=== PATIENT | female | born 1980 | race African-American/Black ===

== ENCOUNTER 2017-12-28 13:50 | Emergency (ER) | payer OTHER ==
--- NOTE | 2017-12-28 14:57 | ULT ---
DOPPLER VENOUS ULTRASOUND LEFT LOWER EXTREMITY: Date: 12/28/17 INDICATION: Left leg edema and pain. TECHNIQUE: Ocyne scale, color Doppler, and vascular duplex with spectral analysis was performed of the deep venou s structures of the left lower extremity. The common femoral vein, superficial femoral vein, proximal greater saphenous vein, proximal greater profunda vein, popliteal, and posterior tibial veins were a ssessed. FINDINGS: Normal compression, flow, and augmentation was seen within the deep venous structures on the left low er extremity. IMPRESSION: No evidence of deep venous thrombosis within the left lower extremity. POS: KATHARINA
== END 2017-12-28 15:23 | disposition home or self-care (01) ==
LOC: ERS 13:50
DX: M79.605 Pain in left leg (principal); B20 Human immunodeficiency virus [HIV] disease; Z86.73 Personal history of transient ischemic attack (TIA), and cerebral infarction without residual deficits; F31.9 Bipolar disorder, unspecified; F17.210 Nicotine dependence, cigarettes, uncomplicated; Z79.899 Other long term (current) drug therapy

== ENCOUNTER 2018-04-29 16:32 | Emergency (ER) | payer SELFPAY ==
[2018-04-29] MEDS ORDERED: hydrOXYzine 25 MG TAB ONE (17:15)
== END 2018-04-29 17:27 | disposition home or self-care (01) ==
LOC: ERS 16:32
DX: L30.9 Dermatitis, unspecified (principal); Z86.73 Personal history of transient ischemic attack (TIA), and cerebral infarction without residual deficits; F41.9 Anxiety disorder, unspecified; F31.9 Bipolar disorder, unspecified; F17.210 Nicotine dependence, cigarettes, uncomplicated; B20 Human immunodeficiency virus [HIV] disease
CPT/HCPCS: 99282

== ENCOUNTER 2018-06-29 14:07 | Inpatient (IN) | payer SELFPAY ==
[2018-06-29 15:44] LABS: Hemoglobin 10.7 g/dL (12.0-16.0); Mean Corpuscular HGB CONC 31.9 g/dL (32.0-36.0); Mean Corpuscular Hemoglobin 32.3 pg (27.0-31.0); Mean Platelet Volume 9.2 fL (7.4-10.4); Platelet Count 132 thou/uL (130-400); RBC Distribution Width 13.8 % (11.5-14.5); Red Blood Cell (RBC) Count 3.32 mill/uL (4.20-5.40); White Blood Cell (WBC) Count 2.6 thou/uL (4.8-10.8)
[2018-06-29 16:04] LABS: Band 10 % (5-11); Eosinophils 2 % (0-10); Lymphocytes 35 % (21-51); MDiff Complete? YES; Macrocytosis SLIGHT = 6-15 cells (100X) (0-5/hpf); Monocytes 7 % (0-10); Neutrophil 44 % (42-75); Platelet Morphology Comment Appears Adequate; Polychromasia SLIGHT = 2-3 cells (100X) (0-2/hpf); Reactive Lymphocytes 2 % (0-10)
[2018-06-29 16:08] LABS: ALT (SGPT) 13 U/L (8-55); AST (SGOT) 33 U/L (5-34); Albumin 3.5 g/dL (3.5-5.0); Alkaline Phosphatase 84 U/L (40-150); Anion Gap 11 mmol/L (10-20); BUN (Urea Nitrogen) 7 mg/dL (7.0-18.7); Bilirubin, Total 0.3 mg/dL (0.2-1.2); Calc. Creatinine Clearance 0 mL/min (70-130); Calcium 8.5 mg/dL (7.8-10.44); Carbon Dioxide 24 mmol/L (22-29); Chloride 105 mmol/L (98-107); Estimated GFR-MDRD Greater than 90; Globulin 3.7 g/dL (2.4-3.5); Glucose 113 mg/dL (70-105); Potassium 3.4 mmol/L (3.5-5.1); Protein, Total 7.2 g/dL (6.0-8.3); Sodium 137 mmol/L (136-145)
[2018-06-29] MEDS ORDERED: cefTRIAXone\\ROCEPHIN 2 GM VIAL ONE (18:12)
[2018-06-29] MEDS ORDERED: Sulfameth/Trimethoprim DS 800-160mg TAB ONE (18:37)
--- NOTE | 2018-06-29 18:42 | PDOC.FPRHP ---
- History of Present Illness Chief Complaint: LLE pain History of Present Illness: 37 yo F with HIV/AIDS and recent CD4 count of 5 with PMH of noncompliance presents for LLE pain. Patient was seen 2 weeks ago in [place] and started on bactrim for cellulitis of LLE. Pt states she took most of the medication, but her pain and the "hole" in her leg is worsening. She has seen Dr. Pena in the past, but has essentially been off of her anti-retroviral or depression medication for the past year. She states she intermittently takes her medication , but has been having trouble with her medicaid. In ED, CXR wnl. XR Tib/Fib wnl. WBC 2.6. Septic work up started. Blood cx drawn. Rocephin, bactrim, and vanc started. Received 2L NS. - Allergies/Adverse Reactions Allergies Allergy/AdvReac Type Severity Reaction Status Date / Time No Known Drug Allergies Allergy Verified 06/29/18 22:22 - History PMHx: HIV AIDS, depression, HPV/cervical abnormalities PSHx: hysterectomy (still has her ovaries) FHx: DM in mother and mGm, HF in mGM Social: Smoked 20 yrs 1 pack/week, currently occasional smoker; no alcohol use; history of cocaine use (snort) and state she has nasal issues 2/2 that, but denied IV drug use - Review of Systems General: denies: fever/chills, night sweats Eyes: reports: vision changes (not acute). denies: eye pain ENT: reports: nasal congestion, rhinorrhea Respiratory: reports: cough, congestion. denies: shortness of breath Cardiovascular: reports: edema (in LLE). denies: chest pain, palpitation Gastrointestinal: denies: nausea, vomiting, diarrhea, constipation, abdominal pain, GI bleeding Genitourinary: denies: dysuria, other (denies hematuria) Skin: reports: rashes (hyperpigmented spots on chest), lesions (LLE) Neurological: reports: numbness (3rd finger right hand, distal tip). denies: seizure, weakness Psychological: reports: depression. denies: anxiety - Vital signs BP: [108/73] HR: [107] RR: [18] Tmax: [99.6] Pox: [96]% on [RA] Wt: [88.45 kg ] - Physical Exam Constitutional: NAD, awake, alert and oriented HEENT: normocephalic and atraumatic, PERRLA, EOMI, conjunctiva clear -HEENT: tongue = atrophi cglossitis Neck: supple, trachea midline, no LAD Heart: RRR, normal S1/S2, no murmurs/rubs/gallops Lungs: CTAB, no respiratory distress, good air movement, no rales/rhonchi, no wheezing Abdomen: soft, non-tender, bowel sounds present, no masses/distention Musculoskeletal: normal structure, normal tone Neurological: no focal deficit, CN II-XII intact -Neurological: numbness rt middle finger distal to DIP Skin: other (Hyperpigmentated patches and intertriginous areas, over chest and back; dry patches; ulceration about 1 cm diameter on anterior sterling LLE, with erythema surrounding; no rash on palms/soles) Heme/Lymphatic: no unusual bruising or bleeding, no purpura Psychiatric: normal mood and affect, intact recent and remote memory FMR H&P: Results - Labs Result Diagrams: 06/29/18 15:28 06/29/18 15:28 Lab results: WBC 2.6 thou/uL (4.8-10.8) L 06/29/18 15:28 Hgb 10.7 g/dL (12.0-16.0) L 06/29/18 15:28 Hct 33.5 % (36.0-47.0) L 06/29/18 15:28 MCV 101.0 fL (78.0-98.0) H 06/29/18 15:28 Plt Count 132 thou/uL (130-400) 06/29/18 15:28 Band Neuts % (Manual) 10 % (5-11) 06/29/18 15:28 Sodium 137 mmol/L (136-145) 06/29/18 15:28 Potassium 3.4 mmol/L (3.5-5.1) L 06/29/18 15:28 Chloride 105 mmol/L (98-107) 06/29/18 15:28 Carbon Dioxide 24 mmol/L (22-29) 06/29/18 15:28 BUN 7 mg/dL (7.0-18.7) 06/29/18 15:28 Creatinine 0.70 mg/dL (0.6-1.1) 06/29/18 15:28 Glucose 113 mg/dL (70-105) H 06/29/18 15:28 Lactic Acid 1.0 mmol/L (0.5-2.2) 06/29/18 15:28 Calcium 8.5 mg/dL (7.8-10.44) 06/29/18 15:28 Total Bilirubin 0.3 mg/dL (0.2-1.2) 06/29/18 15:28 AST 33 U/L (5-34) 06/29/18 15:28 ALT 13 U/L (8-55) 06/29/18 15:28 Alkaline Phosphatase 84 U/L (40-150) 06/29/18 15:28 Serum Total Protein 7.2 g/dL (6.0-8.3) 06/29/18 15:28 Albumin 3.5 g/dL (3.5-5.0) 06/29/18 15:28 - Radiology Interpretation Chest x-ray Status: image reviewed by me, report reviewed by me Additional comment: wnl Other Status: image reviewed by me, report reviewed by me Additional comment: XR Tib/fib: no acute findings US - venous Status: report reviewed by me Additional comment: eufemiao LLE: no DVT FMR H&P: A/P - Problem List (1) Sepsis due to cellulitis Current Visit: Yes Status: Acute Code(s): L03.90 - CELLULITIS, UNSPECIFIED; A41.9 - SEPSIS, UNSPECIFIED ORGANISM (2) HIV (human immunodeficiency virus infection) Current Visit: Yes Status: Chronic Code(s): B20 - HUMAN IMMUNODEFICIENCY VIRUS [HIV] DISEASE (3) AIDS Current Visit: Yes Status: Acute (4) Atopic dermatitis Current Visit: Yes Status: Acute Code(s): L20.9 - ATOPIC DERMATITIS, UNSPECIFIED (5) Depression Current Visit: Yes Status: Acute Code(s): F32.9 - MAJOR DEPRESSIVE DISORDER , SINGLE EPISODE, UNSPECIFIED - Plan Sepsis 2/2 Cellulitis - Tachycardic, WBC 2.6 - CXR wnl, UA with culture pending, blood cultures pending - Eufemiao LLE: no DVT present - Rocephin, vanc, and bactrim in ED; 2L NS in ED - Procal pending - Continue vanc and cefepime - Wound care consulted - Quant gold pending HIV/AIDS Patient has had HIV 20 years, noncompliant with medications - CD4 count 5 2 weeks ago in [place] - Start PPx with azithromycin and Bactrim - Consult Dr. Pena, ID, in AM; recommendations appreciated Atopic Dermatitis - Benadryl PRN for itching - Eucerin PRN Depression - Not currently on medication consistently - Continue prozac Hx of abnormal pap, s/p hysterectomy - Aware Diet: Regular Code status: full code DVT ppx: lovenox GI ppx: Ranitidine PCP: DANO FMR H&P: Upper Level - Pertinent history 37 yo _F PMH AIDS with most recent CD4 count at 5 on 06/14. Presents with 3 wk hx of swelling in her left lower leg. Was seen in ER 10 days ago. Started on keflex and bactrim. States swelling has worsened. ER: NS 2L, Bactrim, Rocephin, Vanc - Pertinent findings Vitals: Pulse 107. GEN: NAD CV: tachycardic regular Pulm: CTA-B Extremities: 3 cm ulcer left sterling with surround erythema and purulent drainage coming form wound. Skin: diffuse eczema. Labs: WBC 2.6, H&H 10.7/33.5 MCV 101. CXR:No acute processes. XR tib/fib: No acute processes. - Plan Date/Time: 06/29/181840 I, Jerry Medina MD, have evaluated this patient and agree with findings/plan as outlined by programming intern resident. Pertinent changes/additions are listed here. 1. Sepsis cellulitis of left leg: No signs necrotizing fascitis. Since immune compromised and already failed Keflex and Bactim, d/c rocephin and bactrim and start Vanc and cefepime. Consult ID in the morning. 2. AIDS: ID consult for management. Start azithromycin 1200 mg qWk and bactrim 80/160 mg QD for PPx. Check quant gold since immune compromise. 3. Stasis ulcer: wound care 4. Noncompliance: discussed the importance of HAART compliance. 5. Diet: Regular. 6. PPx: Fall, no anticoagulation in case she need surgical procedure 7. CODE: FULL Dispo: medical, inpatient, >2 midnights. Addendum - Attending - Attending Attestation Date/Time: 06/30/18 0105 I personally evaluated the patient and discussed the management with Dr. Medina on 06/29/2018 I agree with the History, Examination, Assessment and Plan documented above with any addition or exceptions noted below - .37 yo F with HIV/AIDS presents with LLE pain. Patient was seen 2 weeks ago in [place] and started on bactrim for cellulitis of LLE. Pt states she took most of the medication, but her pain and the "hole" in her leg is worsening. States that the ulcer started as small blister which has continued to increase in size. Denies any fever/chills. Normal appetite. Denies any N/V/D. States that she has had more swelling in that leg. PMH/PSH/Meds/SH reviewed and agree with resident's documentation. T98.7 P107 BP116/79 RR18 97%RA Exam repeated by me and agree with resident's findings. Labs: WBC=2.6, H/H=10.7/33.5, Enm=406, Diff=44N/10B/35L. Na =137, K=3.4, Ux=333, CO2=24, BUN/Cr=7/0.7, Lactic acid=1.0, U/A (-), CXR (-), Venogram- no evidence of DVT. CD4=5, HIV QNE=556,000. A/P: 1) Leg ulcer with possible surrounding cellulitus- Admit to medical for IV abx after outpatient therapy failure. Start vanc and cefepime. Ulcer may also be vascular- consider evaluation of curculation if no improvement. 2) AIDS- patient has not been on antiretrovirals for some time. Consult Dr. Pena in AM.
--- NOTE | 2018-06-29 19:10 | RAD ---
LEFT TIBIA AND FIBULA: 06/29/18 Two views. HISTORY: Pain. No fracture. No osseous abnormality identified. No significant soft tissue abnormality. IMPRESSION: No acute findings. POS: KATHARINA
--- NOTE | 2018-06-29 19:24 | RAD ---
PORTABLE CHEST: 06/29/18 HISTORY: HIV and AIDS. FINDINGS/IMPRESSION: The lungs are clear. The heart and mediastinum unremarkable. No acute process identified. POS: [facility]
[2018-06-29] MEDS ORDERED: Vancomycin HCl 1 GM in Premix Bag 1 BAG IVPB ONE (19:30)
[2018-06-29] MEDS ORDERED: Acetaminophen 650 MG Suppository PR PRN (21:23)
[2018-06-29] MEDS ORDERED: Ondansetron PF 4 MG/2 ML Vial IVP PRN (21:23)
[2018-06-29] MEDS ORDERED: Ondansetron ODT 4 MG TAB PO PRN (21:23)
[2018-06-29] MEDS ORDERED: Enoxaparin Sodium 40 MG/0.4 ML SYRINGE SC SCH (21:23)
[2018-06-29] MEDS ORDERED: Acetaminophen 325 MG TAB PO PRN (21:23)
[2018-06-29] MEDS ORDERED: Famotidine 20 MG TAB PO SCH (22:00)
[2018-06-29 22:33] VITALS: BMI 34.4
[2018-06-29] MEDS: diphenhydrAMINE 25 MG CAP PO PRN (22:59)
--- NOTE | 2018-06-29 23:05 | ULT ---
LEFT LOWER EXTREMITY VENOUS DUPLEX STUDY: 06/29/18 Deep veins of the left lower extremity evaluated with color doppler, spectral analysis and compressio n. INDICATIONS: Left lower extremity pain and edema. Deep veins of the left lower extremity showed normal blood flow and compression. No evidence of DVT. IMPRESSION: No evidence of left lower extremity DVT. POS: DONALD
[2018-06-29 23:51] LABS: Bilirubin Small (Negative); Blood, Urine Negative (Negative); Clarity CLEAR (Clear); Glucose, Urine (Dipstick) Negative (Negative); Leukocyte Negative (Negative); Nitrite Negative (Negative); Protein, Urine (Dipstick) Negative (Neg-Trace); Specific Gravity, Urine 1.018 (1.002-1.036); pH, Urine 6.5 (5.0-9.0)
[2018-06-29] MEDS ORDERED: Hydrocerin (Eucerin) Cream 120 gm Jar TOP PRN (23:55)
[2018-06-30 08:10] LABS: Anion Gap 10 mmol/L (10-20); BUN (Urea Nitrogen) 7 mg/dL (7.0-18.7); Calc. Creatinine Clearance 122 mL/min (70-130); Calcium 7.5 mg/dL (7.8-10.44); Carbon Dioxide 23 mmol/L (22-29); Chloride 110 mmol/L (98-107); Estimated GFR-MDRD 84; Glucose 99 mg/dL (70-105); Potassium 3.6 mmol/L (3.5-5.1); Sodium 139 mmol/L (136-145)
[2018-06-30 08:19] LABS: Band 12 % (5-11); Eosinophils 4 % (0-10); Hemoglobin 9.3 g/dL (12.0-16.0); Lymphocytes 38 % (21-51); MDiff Complete? YES; Macrocytosis SLIGHT = 6-15 cells (100X) (0-5/hpf); Mean Corpuscular HGB CONC 32.1 g/dL (32.0-36.0); Mean Corpuscular Hemoglobin 32.6 pg (27.0-31.0); Mean Platelet Volume 10.7 fL (7.4-10.4); Monocytes 8 % (0-10); Neutrophil 30 % (42-75); Ovalocytes SLIGHT = 2-5 cells (100X) (0-1/hpf); Platelet Count 71 thou/uL (130-400); Platelet Morphology Comment Appears Decreased; Polychromasia SLIGHT = 2-3 cells (100X) (0-2/hpf); RBC Distribution Width 13.5 % (11.5-14.5); Reactive Lymphocytes 8 % (0-10); Red Blood Cell (RBC) Count 2.84 mill/uL (4.20-5.40); White Blood Cell (WBC) Count 1.7 thou/uL (4.8-10.8)
--- NOTE | 2018-06-30 08:31 | PDOC.FM ---
- Subjective Subjective: Patient seen at bedside this morning resting comfortably in no acute distress. Following admission there were no acute problems over night. She complains of continued LLE pain associated with her wound. No new complaints - Objective MAR Reviewed: Yes Vital Signs & Weight: Vital Signs (12 hours) Temp Pulse Resp BP BP Pulse Ox 06/30/18 07:24 98.5 F 104 H 20 129/83 100 06/30/18 04:24 98.7 F 111 H 20 109/69 97 06/30/18 00:03 98.7 F 100 20 129/80 98 06/29/18 21:17 98.3 F 107 H 18 116/79 97 Weight Weight 91.217 kg I&O: 06/29/18 06/30/18 07/01/18 06:59 06:59 06:59 Intake Total 480 Balance 480 Result Diagrams: 06/30/18 07:41 06/30/18 07:41 Phys Exam - Physical Examination Constitutional: NAD HEENT: moist MMs, sclera anicteric Neck: full ROM Respiratory: clear to auscultation bilateral Cardiovascular: no significant murmur tachy Gastrointestinal: soft, non-tender Musculoskeletal: no edema, pulses present Neurological: moves all 4 limbs Psychiatric: A&O x 3 Deviation from normal: 2 cm round ulcer with surrounding erythema on lateral LLE. Mild drainage Dx/Plan (1) Open wound of skin Code(s): T14.8XXA - OTHER INJURY OF UNSPECIFIED BODY REGION, INITIAL ENCOUNTER Status: Acute (2) AIDS Status: Acute (3) Sepsis due to cellulitis Code(s): L03.90 - CELLULITIS, UNSPECIFIED; A41.9 - SEPSIS, UNSPECIFIED ORGANISM Status: Acute (4) HIV (human immunodeficiency virus infection) Code(s): B20 - HUMAN IMMUNODEFICIENCY VIRUS [HIV] DISEASE Status: Chronic (5) Pancytopenia Code(s): D61.818 - OTHER PANCYTOPENIA Status: Acute - Plan Plan: 1. Sepsis secondary to cellulitis - continue IV Vanc and cefepime, day 2 - source appears to be open wound on LLE. Wound care has been consulted. There does not appear to be an underlying fluid collection 2. Non healing ulcer - wound care consulted 3. AIDS - CD4 count 2 weeks ago of 5 in outside facility - Dr Pena has been consulted. - neutropenic precautions - would expect to restart VANCE therapy here and follow up with [facility] outpatient - Bactrim/Azithro prophylaxis 4. Pancytopenia - most likely related to uncontrolled HIV - monitor CBC in am - contact precautions as above Dispo: patient currently stable, would expect IV abx for 1-2 days Addendum - Attending - Attending Attestation Date/Time: 06/30/18 3512 I personally evaluated the patient and discussed the management with Dr. Montes. I agree with the History, Examination, Assessment and Plan documented above with any addition or exceptions noted below. LLE non-healing ulcer with surrounding cellulitis- on vanc and cefepime. AIDS- CD4 count of 5 and pancytopenia from HIV- appreciate Dr. Becky casey [id number] ANC <1000- will put on precautions and start bactrim and azithromycin
[2018-06-30] MEDS ORDERED: Vancomycin HCl 1.25 GM in Sodium Chloride 0.9% 250 ML 250 ML IVPB SCH ×2 (09:00→23:00)
[2018-06-30] MEDS ORDERED: Azithromycin 250 MG TAB PO SCH (09:00)
[2018-06-30] MEDS ORDERED: Cefepime 2 GM in Sodium Chloride 0.9% 100 ML IVPB SCH (09:00)
[2018-06-30] MEDS: Famotidine 20 MG TAB PO SCH ×2 (09:34→20:30)
[2018-06-30] MEDS: Sulfameth/Trimethoprim DS 800-160mg TAB PO SCH (09:35)
[2018-06-30] MEDS: Enoxaparin Sodium 40 MG/0.4 ML SYRINGE SC SCH (09:36)
[2018-06-30] MEDS: Raltegravir Potassium 400 MG TAB PO SCH (20:30)
[2018-06-30] MEDS: Doxycycline 100 MG CAP PO SCH (20:30)
[2018-06-30] MEDS: Rifampin 300 MG CAP PO SCH (20:30)
--- NOTE | 2018-06-30 23:01 | CON ---
DATE OF CONSULTATION: 06/30/2018 REASON FOR CONSULTATION: Left leg inflammatory changes. HISTORY OF PRESENT ILLNESS: A 37-year-old known to me from prior visits, both in the clinic as well as in the hospital, last saw patient in the clinic in April 2017. At that time, her viral load was 290,000 and CD4 cell count was 66. We recommend her to restart her anti-retroviral therapy and she has not returned for followup. The last viral load and CD4 cell counts from 03/20, which showed CD4 of 66 and viral load of 290,000. Here at [facility], she has another viral load done which was much lower than that. She is admitted this time with pain in the left lower extremity associated with inflammatory changes. She had been into [facility] 2 weeks before given Bactrim, but felt that it was not improving. No headaches. No visual symptoms, sore throat, odynophagia, or dysphagia. No cough, sputum production, or chest pain. No back pain. No abdominal pain or diarrhea. Voiding without difficulty. PAST MEDICAL HISTORY: HIV with advanced immunosuppression, last CD4 cell count less than 10, HPV associated cervical abnormalities, poor adherence to anti-retroviral therapy. PAST SURGICAL HISTORY: Hysterectomy. FAMILY HISTORY: Type 2 diabetes. SOCIAL HISTORY: Occasional smoker. No alcoholic beverage use. Uses cocaine intermittently. No IV drug use. CURRENT MEDICATIONS: 1. Cefepime. 2. Vancomycin. 3. Bactrim. 4. Azithromycin. PHYSICAL EXAMINATION: VITAL SIGNS: T-max 98.7, blood pressure 120/80, pulse 104, respirations 20, and O2 saturation 100. SKIN: We have this left anterior leg lesion about 2 cm in diameter red base surrounded by some hyperpigmentation, erythema, and a little bit of induration. The patient has a peripheral IV access and is voiding spontaneously in the toilet. GENERAL: Awake, alert, oriented, no distress. HEENT: No lymphadenopathy. Ocular movements conjugate. Oral cavity with no evidence of thrush. NECK: No jugular vein distention. LUNGS: Symmetric air entry. HEART: S1, S2. Regular rate without murmurs. ABDOMEN: Soft, not distended or tender. No ascites. No bladder distention. No joint inflammatory activity. Pulses 1+ in dorsalis pedis. NEUROLOGIC: Nonfocal. LABORATORY DATA: White cell count 2.6 and 1.7, hemoglobin 10.7, platelets 132 with normal differential. Chemistry with a creatinine of 0.7. Liver profile normal. Globulin 3.7. Urinalysis was fairly normal except for some bilirubin excretion. White cell count with group B strep many years ago, but no cultures from this ulcer have been submitted yet. ASSESSMENT: 1. Longstanding HIV infection with poor adherence to anti-retroviral therapy and progressive decrease in CD4 cell count down to very low levels at this time. 2. Abscess of left anterior leg, status post limited I and D with inflammatory changes. DISCUSSION: Differential diagnosis includes the usual staphylococcal abscesses versus an alternate etiology including possible opportunistic pathogen role here. We will check her cryptococcus antigen. Resume anti-retroviral therapy with Biktarvy. We will give patient samples as well as continue Bactrim orally, prophylactic dose for Pneumocystis. Switch her to oral doxycycline with Bactrim and if there is further improvement, consider discharge planning. Job ID: [id number]
[2018-07-01 06:41] LABS: Anion Gap 12 mmol/L (10-20); BUN (Urea Nitrogen) 6 mg/dL (7.0-18.7); Calc. Creatinine Clearance 173 mL/min (70-130); Calcium 7.7 mg/dL (7.8-10.44); Carbon Dioxide 19 mmol/L (22-29); Chloride 109 mmol/L (98-107); Estimated GFR-MDRD Greater than 90; Glucose 128 mg/dL (70-105); Potassium 3.4 mmol/L (3.5-5.1); Sodium 137 mmol/L (136-145)
[2018-07-01 06:46] LABS: Hemoglobin 9.8 g/dL (12.0-16.0); Hypochromia SLIGHT = 6-15 cells (100X) (0-5/hpf); Lymphocytes 44 % (21-51); MDiff Complete? YES; Macrocytosis SLIGHT = 6-15 cells (100X) (0-5/hpf); Mean Corpuscular HGB CONC 32.6 g/dL (32.0-36.0); Mean Corpuscular Hemoglobin 33.3 pg (27.0-31.0); Mean Platelet Volume 10.4 fL (7.4-10.4); Monocytes 16 % (0-10); Neutrophil 40 % (42-75); Platelet Count 69 thou/uL (130-400); Platelet Morphology Comment Appears Decreased; RBC Distribution Width 13.4 % (11.5-14.5); Red Blood Cell (RBC) Count 2.94 mill/uL (4.20-5.40); White Blood Cell (WBC) Count 1.3 thou/uL (4.8-10.8)
--- NOTE | 2018-07-01 08:48 | PDOC.FM ---
- Subjective Subjective: Seen at bedside this morning, no new complaints. She was seen by ID yesterday and restarted on VANCE. No acute events over night. - Objective MAR Reviewed: Yes Vital Signs & Weight: Vital Signs (12 hours) Temp Pulse Resp BP Pulse Ox 07/01/18 07:52 98.6 F 97 20 129/82 100 07/01/18 04:00 98.7 F 112 H 17 125/83 96 07/01/18 00:00 98.8 F 108 H 17 116/72 98 Weight Admit Weight 91.217 kg Weight 91.217 kg I&O: 06/30/18 07/01/18 07/02/18 06:59 06:59 06:59 Intake Total 480 770 Balance 480 770 Result Diagrams: 07/01/18 06:02 07/01/18 06:02 Phys Exam - Physical Examination Constitutional: NAD HEENT: moist MMs Neck: full ROM Respiratory: clear to auscultation bilateral Cardiovascular: RRR, no significant murmur Gastrointestinal: soft, non-tender, positive bowel sounds Musculoskeletal: no edema Neurological: moves all 4 limbs Psychiatric: normal affect, A&O x 3 Deviation from normal: Open wound on LLE dressed by wound care. Non tender, no exudate, -: no erythema Dx/Plan (1) Open wound of skin Code(s): T14.8XXA - OTHER INJURY OF UNSPECIFIED BODY REGION, INITIAL ENCOUNTER Status: Acute (2) AIDS Status: Acute (3) Sepsis due to cellulitis Code(s): L03.90 - CELLULITIS, UNSPECIFIED; A41.9 - SEPSIS, UNSPECIFIED ORGANISM Status: Acute (4) HIV (human immunodeficiency virus infection) Code(s): B20 - HUMAN IMMUNODEFICIENCY VIRUS [HIV] DISEASE Status: Chronic (5) Pancytopenia Code(s): D61.818 - OTHER PANCYTOPENIA Status: Acute - Plan Plan: 1. Sepsis secondary to cellulitis - Per ID recommendation, change to PO doxy and rifampin per ID - Continue wound care, will need outpatient care 2. Non healing ulcer - wound care consulted 3. AIDS - CD4 count less than 10 - Dr Pena has been consulted. - neutropenic precautions - Patient has been restarted on VANCE. Is declining information for [facility]. States that Dr. Pena is going to give her 3 mo of samples and that is good enough. - Bactrim prophylaxis 4. Pancytopenia - most likely related to uncontrolled HIV, currently stable. Continue to monitor - contact precautions as above Dispo: patient currently stable, likely dc this afternoon or in am Addendum - Attending - Attending Attestation Date/Time: 07/01/18 5477 I personally evaluated the patient and discussed the management with Dr. Montes. I agree with the History, Examination, Assessment and Plan documented above with any addition or exceptions noted below. Non-healing L lower ext wound with surrounding cellulitis- cellulitis much improved. Stable for d/c home on oral meds per ID. Will need o/p wound care for ulcer and CM working to assist in this. HIV-meds per Dr. Pena- appreciate recs. Non-compliance- discussed getting set up with [facility] clinic in [place] but she does not seem interested.
[2018-07-01] MEDS: Enoxaparin Sodium 40 MG/0.4 ML SYRINGE SC SCH (09:22)
[2018-07-01] MEDS: Raltegravir Potassium 400 MG TAB PO SCH ×2 (09:23→20:27)
[2018-07-01] MEDS: Emtricitabine/Tenofovir 200-300 MG TAB PO SCH (09:23)
[2018-07-01] MEDS: Famotidine 20 MG TAB PO SCH ×2 (09:23→20:27)
[2018-07-01] MEDS: Rifampin 300 MG CAP PO SCH ×2 (09:23→21:34)
[2018-07-01] MEDS: Doxycycline 100 MG CAP PO SCH ×2 (09:24→20:27)
[2018-07-01] MEDS: Sulfameth/Trimethoprim DS 800-160mg TAB PO SCH (09:24)
[2018-07-01 10:21] LABS: Vancomycin, Trough 2.1 ug/mL
[2018-07-01] MEDS: diphenhydrAMINE 25 MG CAP PO PRN (20:27)
[2018-07-02 06:12] LABS: Anion Gap 12 mmol/L (10-20); BUN (Urea Nitrogen) 7 mg/dL (7.0-18.7); Calc. Creatinine Clearance 191 mL/min (70-130); Calcium 8.3 mg/dL (7.8-10.44); Carbon Dioxide 20 mmol/L (22-29); Chloride 109 mmol/L (98-107); Estimated GFR-MDRD Greater than 90; Glucose 94 mg/dL (70-105); Potassium 3.7 mmol/L (3.5-5.1); Sodium 137 mmol/L (136-145)
[2018-07-02 06:24] LABS: Band 2 % (5-11); Eosinophils 12 % (0-10); Hemoglobin 10.8 g/dL (12.0-16.0); Lymphocytes 38 % (21-51); MDiff Complete? YES; Mean Corpuscular HGB CONC 31.7 g/dL (32.0-36.0); Mean Corpuscular Hemoglobin 32.7 pg (27.0-31.0); Mean Platelet Volume 10.3 fL (7.4-10.4); Monocytes 16 % (0-10); Neutrophil 32 % (42-75); Platelet Count 90 thou/uL (130-400); Platelet Morphology Comment Appears Decreased; RBC Distribution Width 13.6 % (11.5-14.5); Red Blood Cell (RBC) Count 3.29 mill/uL (4.20-5.40); White Blood Cell (WBC) Count 1.1 thou/uL (4.8-10.8)
--- NOTE | 2018-07-02 08:26 | PDOC.FM ---
- Subjective Subjective: Seen at bedside this morning in no acute distress. No new complaints. Patient is concerned about how she is going to be able to afford wound care outpatient. - Objective Vital Signs & Weight: Vital Signs (12 hours) Temp Pulse Resp BP Pulse Ox 07/02/18 04:30 97.7 F 79 18 105/68 97 07/01/18 23:59 97.7 F 91 18 100/65 100 Weight Admit Weight 91.217 kg Weight 91.217 kg I&O: 07/01/18 07/02/18 07/03/18 06:59 06:59 06:59 Intake Total 770 1440 Balance 770 1440 Result Diagrams: 07/02/18 05:13 07/02/18 05:13 Phys Exam - Physical Examination Constitutional: NAD HEENT: moist MMs Neck: full ROM Respiratory: clear to auscultation bilateral Cardiovascular: RRR, no significant murmur Gastrointestinal: soft, non-tender, positive bowel sounds Musculoskeletal: no edema Neurological: moves all 4 limbs Psychiatric: normal affect, A&O x 3 Deviation from normal: Ulcer on LLE, wound clean and dressed Dx/Plan (1) Open wound of skin Code(s): T14.8XXA - OTHER INJURY OF UNSPECIFIED BODY REGION, INITIAL ENCOUNTER Status: Acute (2) AIDS Status: Acute (3) Sepsis due to cellulitis Code(s): L03.90 - CELLULITIS, UNSPECIFIED; A41.9 - SEPSIS, UNSPECIFIED ORGANISM Status: Acute (4) HIV (human immunodeficiency virus infection) Code(s): B20 - HUMAN IMMUNODEFICIENCY VIRUS [HIV] DISEASE Status: Chronic (5) Pancytopenia Code(s): D61.818 - OTHER PANCYTOPENIA Status: Acute - Plan Plan: 1. Sepsis secondary to cellulitis, resolved - Per ID recommendation continue PO doxy and rifampin per ID - Continue wound care, working with CM to get outpatient care set up 2. Non healing ulcer - wound care consulted 3. AIDS - CD4 count less than 10 - Dr Pena, will follow outpatient - neutropenic precautions - Continue VANCE - Bactrim prophylaxis 4. Pancytopenia - most likely related to uncontrolled HIV, currently stable. Continue to monitor - contact precautions as above Dispo: patient currently stable, likely dc this afternoon or in am pending wound care follow up Addendum - Attending - Attending Attestation Date/Time: 07/02/18 9976 I personally evaluated the patient and discussed the management with Dr. Montes. I agree with the History, Examination, Assessment and Plan documented above with any addition or exceptions noted below. Cellulitis- much improved Non-healing ulcer- needs outpatient wound care (but currently unfunded). Appreciate CM help for f/u HIV with non-compliance- restarted on meds per ID. Pancytopenia- secondary to HIV and non-compliance. ANC <500. Afebrile and asymptomatic. Precautions. Stabe for d/c once wound care set up.
[2018-07-02] MEDS: Raltegravir Potassium 400 MG TAB PO SCH (10:13)
[2018-07-02] MEDS: Doxycycline 100 MG CAP PO SCH (10:14)
[2018-07-02] MEDS: Sulfameth/Trimethoprim DS 800-160mg TAB PO SCH (10:14)
[2018-07-02] MEDS: Emtricitabine/Tenofovir 200-300 MG TAB PO SCH (10:14)
[2018-07-02] MEDS: Famotidine 20 MG TAB PO SCH (10:14)
[2018-07-02] MEDS: Rifampin 300 MG CAP PO SCH (10:14)
[2018-07-02] MEDS: Enoxaparin Sodium 40 MG/0.4 ML SYRINGE SC SCH (10:15)
[2018-07-02 12:43] VITALS: BP 118/77; TEMP 97.9
[2018-07-04 20:07] LABS: QuantiFERON-TB Gold Plus Negative (Negative)
--- NOTE | 2018-07-05 08:05 | DIS ---
DATE OF ADMISSION: 06/29/2018 DATE OF DISCHARGE: 07/02/2018 RESIDENT: Maicol Montes DO CONSULTS: Dr. Jayme Pena, Infectious Disease PROCEDURES: Chest x-ray on 06/29, finding, clear lungs, normal heart and mediastinum, no acute process. Tibia and fibula x-ray on 06/29, finding, no acute process. Vascular ultrasound on 06/29/2018, which found no evidence of lower extremity DVT. ADMITTING DIAGNOSES: 1. Sepsis secondary to cellulitis. 2. Human immunodeficiency virus/acquired immune deficiency syndrome. 3. Nonhealing ulcer, left lower extremity. DISCHARGE MEDICATIONS: 1. Zithromax 1250 mg p.o. q.7 days. 2. Doxycycline 100 mg p.o. b.i.d. x7 days. 3. Truvada 200/300 mg one p.o. daily. 4. Isentress 400 mg p.o. b.i.d. 5. Rifampin 300 mg p.o. b.i.d. 6. Bactrim DS 1 tablet p.o. daily. DISCONTINUED MEDICATIONS: None. HOSPITAL COURSE: This is a 37-year-old female who presented to the emergency room with complaints of pain and nonhealing ulcer on her left lower extremity and in the setting of uncontrolled HIV. In outside facility, she had a CD4 count less than 10 previous week. On presentation, she had a white count of 2.6, hemoglobin of 10.7, and platelets of 132. All of these values trended down over the course of hospitalization. On 07/02, white count of 1.1, hemoglobin of 10.8, and platelet count of 90. The patient was evaluated by wound care and initially started on antibiotics. There are no signs of a drainable abscess. Wound care dressed the wound. The patient was also seen by Infectious Disease, who restarted on HAART therapy and adjust antibiotics to prophylaxis against PCP pneumonia. The patient was given information for how to follow up with Infectious Disease, Dr. Pena, and was referred to [facility] for medications, however, the patient refused to follow up with [facility]. The patient was given 3 months of antiretroviral medicines and was discharged to followup with Infectious Disease. At time of discharge, the patient was stable. Wound was clean and she did not appear to be acutely infected. The patient was sent home on continued prophylactic antibiotics and HAART therapy. DISCHARGE INSTRUCTIONS: DISCHARGE LOCATION: Home. DIET: Regular. ACTIVITY: Ad hung. FOLLOWUP: Follow up with Infectious Disease, Dr. Pena Within 1 week, with [facility] in 1 week, with PCP within 1 week. Job ID: [id number]
== END 2018-07-02 14:30 | disposition home or self-care (01) | DRG 975 ==
LOC: ERS 14:07 → SURG A 21:09
PROVIDERS: ADMIT Family Medicine; ATTEND Family Medicine
DX: A41.9 Sepsis, unspecified organism (principal); L03.116 Cellulitis of left lower limb; B20 Human immunodeficiency virus [HIV] disease; D61.818 Other pancytopenia; L97.929 Non-pressure chronic ulcer of unspecified part of left lower leg with unspecified severity; A63.0 Anogenital (venereal) warts; L20.9 Atopic dermatitis, unspecified; F32.9 Major depressive disorder, single episode, unspecified; F17.210 Nicotine dependence, cigarettes, uncomplicated; Z91.19 Patient's noncompliance with other medical treatment and regimen; Z79.2 Long term (current) use of antibiotics
CPT/HCPCS: 36415; 71045; 80048; 80053; 80202; 81003; 83605; 84145; 85025; 86480; 87040; 87086; 87899; 96365; 96367; 99406; J0692; J0696; J1650; J3370; J7050; Q0163

== ENCOUNTER 2018-07-19 13:56 | Outpatient (CLI) | payer MEDICAID, OTHER ==
--- NOTE | 2018-07-19 17:10 | HP ---
HISTORY OF PRESENT ILLNESS: Ms. Rody Chiu is a very pleasant 37-year-old accompanied by her daughter, who [facility] of an ulceration of the left anterior lower leg. The patient states that approximately 1 month ago a "boil burst." She states that the resulting wound failed to heal and increased in its size and depth. The patient states that following her recent discharge from [facility], she had been cleansing the wound with hydrogen peroxide or saline and dressing her wound as instructed with Shahriar followed by Jose L. Ms. Chiu has no complaints today. She denies any fever or chills. PAST MEDICAL HISTORY: HIV. PAST SURGICAL HISTORY: 1. Bilateral tubal ligation. 2. Laparoscopic hysterectomy. MEDICATIONS: 1. Prednisone. 2. Bactrim DS. 3. Acyclovir. 4. Azithromycin. 5. Atarax. 6. Prozac. 7. Biktarvy. ALLERGIES: NO KNOWN DIAGNOSED ALLERGIES. SOCIAL HISTORY: Social history is significant for tobacco use of up to 1/2 pack of cigarettes per day over the past 15 years. The patient states that she has been a smoker on an intermittent basis. The patient admits to only the occasional consumption of alcohol. FAMILY HISTORY: Family history is significant for diabetes mellitus. The patient states that her mother was diagnosed with diabetes mellitus. The patient states that she has multiple relatives on the maternal side of her family, who were diagnosed with diabetes mellitus. Family history is also significant for coronary artery disease. The patient states that her grandmother was diagnosed with coronary artery disease. PHYSICAL EXAMINATION: VITAL SIGNS: Temperature 97.8, pulse 107, respirations 17, and blood pressure 121/73. GENERAL: A 37-year-old female, sitting on table in examination room, in no acute distress. HEENT: Normocephalic and atraumatic. NECK: No nuchal rigidity. CHEST: Clear to auscultation. CV: Regular rate and rhythm. ABDOMEN: Soft. EXTREMITIES: A wound of the left anterior lower leg is present, which measures approximately 1.5 x 0.9 cm. Granulation tissue is present within the wound margins. No purulent drainage is associated with the wound. No erythema of the skin surrounding the wound is present. No maceration of the skin of the periwound is noted. A dorsalis pedis pulse is easily palpable on the left. [id number] edema of the left foot and lower leg is present on exam today. NEUROLOGIC: Grossly nonfocal. ASSESSMENT AND PLAN: 1. Chronic venous hypertension with ulcer. Promogran, Telfa, and the 3M [employer] 2-Layer Compression System will be applied to the ulceration today. I will see Ms. Chiu again in 1 week. The patient has been instructed to keep the compression wrap clean, dry, and intact until her followup visit next week. 2. Human immunodeficiency virus. Job ID: [id number]
[2018-07-19] MEDS ORDERED: Sodium Chloride 0.9% 15 ML NEB ONE (18:00)
== END 2018-07-19 13:57 | disposition home or self-care (01) ==
LOC: WCC 13:56
PROVIDERS: ATTEND Family Medicine
DX: I87.312 Chronic venous hypertension (idiopathic) with ulcer of left lower extremity (principal); L97.929 Non-pressure chronic ulcer of unspecified part of left lower leg with unspecified severity; B20 Human immunodeficiency virus [HIV] disease
CPT/HCPCS: 97602; 99203; A4218; G0463